=== PATIENT | female | born 1950 | race African-American/Black ===

== ENCOUNTER 2021-04-26 04:16 | Emergency (ER) | payer BC, MEDICARE, OTHER ==
[~2021-04-26] VITALS: Ht 162.6 cm; Wt 60.0 kg
[~2021-04-26 04:16] MED LIST: AMLO10TA80 PO; HYDR-4134 PO; KEPP500 PO; LOSA50TA3 PO
[2021-04-26] MEDS ORDERED: LEVETIRACETAM 500MG PREMIX 100 ML IV ONE (04:45)
[2021-04-26 05:16] LABS: BASOPHILS % 0.6 % (0.0-2.0); EOSINOPHILS % 3.1 % (0.0-5.0); HEMATOCRIT. 35.9 % (36.0-48.0); HEMOGLOBIN. 11.9 g/dL (12.0-16.0); LYMPHOCYTES % 29.5 % (20.0-50.0); MEAN CORPUSCULAR VOLUME 84.5 fL (81.0-99.0); MEAN PLATELET VOLUME 6.9 fl (7.4-10.4); NEUTROPHILS % 61.8 % (40.0-76.0); PLATELET 245 x1000/uL (130-400); RED BLOOD CELL COUNT 4.25 mill/uL (4.2-5.4); RED CELL DISTRIBUTION WIDTH 14.4 % (11.6-14.6)
[2021-04-26 05:20] LABS: CHLORIDE 110 mEq/L (98-107)
[2021-04-26] MEDS ORDERED: KEPP500 MT (05:31)
[2021-04-26 08:07] VITALS: BP 131/62
== END 2021-04-26 08:07 | disposition home or self-care (01) ==
LOC: ER 04:16
DX: G40.909 Epilepsy, unspecified, not intractable, without status epilepticus (principal)
CPT/HCPCS: 36415; 80053; 85025; 96365; 96366; 99284; J1953